=== PATIENT | male | born 1965 | race Caucasian/White ===

== ENCOUNTER 2017-06-27 12:10 | Emergency (ER) | payer SELFPAY ==
[~2017-06-27] VITALS: Ht 180.3 cm; Wt 106.7 kg
[2017-06-27 12:18] VITALS: TEMP 36.7; Ht 180.3 cm; Wt 106.7 kg
[2017-06-27 12:48] LABS: BASO % 0.3 %; BASO ABS # 0.02 K/uL (0-0.2); EOS % 4.3 %; HEMATOCRIT 44.7 % (42-52); HEMOGLOBIN 15.7 g/dL (14.0-18.0); IG# 0.01 K/uL (0.00-0.02); LYMPH % 19.9 %; MEAN CELL VOLUME 89.8 fL (80-100); MEAN CORPUSCULAR HEMOGLOBIN 31.5 pg (25-34); MEAN CORPUSCULAR HGB CONC 35.1 g/dl (32-36); MEAN PLATELET VOLUME 10.4 fL (7.4-10.4); MONO % 6.7 %; MONO ABS # 0.47 K/uL (0.11-0.59); NEUT % 68.7 %; NEUT ABS # 4.82 K/uL (1.4-6.5); PLATELET COUNT 172 K/uL (130-400); RED CELL DISTRIBUTION WIDTH CV 12.3 % (11.5-14.5); RED CELL DISTRIBUTION WIDTH SD 40.4 fL (36.4-46.3); WHITE BLOOD COUNT 7.02 K/uL (4.8-10.8)
[2017-06-27 12:56] LABS: PTT PATIENT 26.6 SECONDS (21.0-31.0)
[2017-06-27 13:04] LABS: CALCIUM 9.1 mg/dl (8.5-10.1); CREATININE 1.12 mg/dl (0.60-1.40); POTASSIUM 3.8 mmol/L (3.5-5.1)
[2017-06-27] MEDS ORDERED: ASPI81TA28 PO (13:12)
[2017-06-27] MEDS ORDERED: SIMVASTATIN PO (13:12)
[2017-06-27] MEDS ORDERED: CLR10 PO (13:12)
[2017-06-27] MEDS ORDERED: DOCU100C31 PO ×2 (13:12)
[2017-06-27] MEDS ORDERED: SERT25TA PO (13:12)
[2017-06-27] MEDS ORDERED: LAMO100T16 PO (13:12)
[2017-06-27] MEDS ORDERED: METOPROLOL PO (13:12)
[2017-06-27] MEDS ORDERED: SERT-234 PO (13:12)
[2017-06-27] MEDS ORDERED: FIBER PO ×2 (13:12)
--- NOTE | 2017-06-27 14:48 | DIAGNOSTIC IMAGING REPORT ---
L VENOUS DOPP LOWER EXT UNILAT CLINICAL HISTORY: 52 years-old Male presenting with left leg swelling eval for dvt. TECHNIQUE: Real-time grayscale and color and spectral Doppler ultrasound imaging of the veins of the left lower extremity was performed. Compression and augmentation were also utilized. COMPARISON: None. FINDINGS: Left: Common femoral vein: Patent. Greater saphenous vein: Patent. Deep femoral vein: Patent. Femoral vein: Patent. Popliteal vein: Patent. Calf veins: Patent. Other: Irregular shaped hypoechoic to anechoic elongated collection in the popliteal fossa extending into the left calf. IMPRESSION: 1. No evidence of deep venous thrombosis. 2. Findings suggest popliteal cyst though extension into the left calf would be atypical. This may represent rupture of the popliteal cyst or associated inflammatory change. Electronically signed by: Wesly Perales M.D. 06/27/2017 2:47 PM Dictated Date/Time: 06/27/2017 2:45 PM
[2017-06-27 15:24] VITALS: BP 133/78; PULSE 59; O2SAT 96
--- NOTE | 2017-06-27 17:10 | EMERGENCY ROOM VISIT NOTE ---
History Report prepared by Betty: Fe Lima Under the Supervision of: Dr. Shoaib Juarez M.D. 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 He has had muscle atrophy to the left side because of the stroke and so normally his right leg is bigger than his left. His has noticed that the left leg, however, has been increasing in size. He describes his pain as a "muscle strain" and denies any fevers, abdominal pain, or sweating. He denies any chest pain or shortness of breath. He denies any injury to the leg. 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 A total of 10 systems reviewed and were otherwise negative. Past Medical & Surgical Medical Problems: (1) CVA, old, dysarthria (2) CVA, old, hemiparesis Family History No pertinent family history Social History Smoking Status: Never Smoker Smokeless Tobacco Use: Unknown Marital Status: Occupation Status: employed Current/Historical Medications Scheduled Aspirin (Aspirin Ec), 81 MG PO DAILY Docusate Sodium (Docusate Sodium), 200 MG PO QAM Docusate Sodium (Docusate Sodium), 100 MG PO QPM Fiber Laxative (Fiber Laxative), 2 CAP PO QAM Fiber Laxative (Fiber Laxative), 1 CAP PO QPM Lamotrigine (Lamictal), 100 MG PO BID Loratadine (Claritin), 10 MG PO DAILY Sertraline (Zoloft), 25 MG PO DAILY Sertraline (Zoloft), 100 MG PO DAILY [Metoprolol], Unknown Dose PO UD [Simvastatin], Unknown Dose PO DAILY Allergies Coded Allergies: Codeine (Unverified Allergy, Severe, VOMITING, 06/27/17) Physical Exam Vital Signs Date Time Temp Pulse Resp B/P (MAP) Pulse Ox O2 Delivery O2 Flow Rate FiO2 06/27/17 15:24 59 16 133/78 96 06/27/17 13:49 72 16 164/72 96 Room Air 06/27/17 12:18 36.7 63 18 151/75 96 Room Air Physical Exam Constitutional: Vital signs reviewed. Eyes: Pupils are equal round reactive to light. Conjunctiva are noninjected. ENT: Pharynx is clear without erythema or exudate. Mucous membranes are moist. Neck supple without meningeal signs. Respiratory: Clear to auscultation bilaterally. Breath sounds are equal bilaterally. Cardiovascular: Regular rate and rhythm. No rubs or gallops. GI: Soft, nondistended and nontender. Bowel sounds are present. Musculoskeletal: Swelling without tenderness to the left calf. Generalized muscle atrophy to the left side. Integumentary: No cyanosis. Neurological: The patient is awake and alert. Weakness and numbness left side with speech difficulty. Psychiatric: Normal affect. Medical Decision & Procedures ER Provider Diagnostic Interpretation: Radiology results as stated below per my review and the radiologist's interpretation: L VENOUS DOPP LOWER EXT UNILAT CLINICAL HISTORY: 52 years-old Male presenting with left leg swelling eval for dvt. TECHNIQUE: Real-time grayscale and color and spectral Doppler ultrasound imaging of the veins of the left lower extremity was performed. Compression and augmentation were also utilized. COMPARISON: None. FINDINGS: Left: Common femoral vein: Patent. Greater saphenous vein: Patent. Deep femoral vein: Patent. Femoral vein: Patent. Popliteal vein: Patent. Calf veins: Patent. Other: Irregular shaped hypoechoic to anechoic elongated collection in the popliteal fossa extending into the left calf. IMPRESSION: 1. No evidence of deep venous thrombosis. 2. Findings suggest popliteal cyst though extension into the left calf would be atypical. This may represent rupture of the popliteal cyst or associated inflammatory change. Electronically signed by: Wesly Perales M.D. 06/27/2017 2:47 PM Laboratory Results 06/27/17 12:35 Red Blood Count 4.98, Mean Corpuscular Volume 89.8, Mean Corpuscular Hemoglobin 31.5, Mean Corpuscular Hemoglobin Concent 35.1, Mean Platelet Volume 10.4, Neutrophils (%) (Auto) 68.7, Lymphocytes (%) (Auto) 19.9, Monocytes (%) (Auto) 6.7, Eosinophils (%) (Auto) 4.3, Basophils (%) (Auto) 0.3, Neutrophils # (Auto) 4.82, Lymphocytes # (Auto) 1.40, Monocytes # (Auto) 0.47, Eosinophils # (Auto) 0.30, Basophils # (Auto) 0.02 06/27/17 12:35 Test 06/27/17 12:35 White Blood Count 7.02 K/uL (4.8-10.8) Red Blood Count 4.98 M/uL (4.7-6.1) Hemoglobin 15.7 g/dL (14.0-18.0) Hematocrit 44.7 % (42-52) Mean Corpuscular Volume 89.8 fL (80-100) Mean Corpuscular Hemoglobin 31.5 pg (25-34) Mean Corpuscular Hemoglobin Concent 35.1 g/dl (32-36) Platelet Count 172 K/uL (130-400) Mean Platelet Volume 10.4 fL (7.4-10.4) Neutrophils (%) (Auto) 68.7 % Lymphocytes (%) (Auto) 19.9 % Monocytes (%) (Auto) 6.7 % Eosinophils (%) (Auto) 4.3 % Basophils (%) (Auto) 0.3 % Neutrophils # (Auto) 4.82 K/uL (1.4-6.5) Lymphocytes # (Auto) 1.40 K/uL (1.2-3.4) Monocytes # (Auto) 0.47 K/uL (0.11-0.59) Eosinophils # (Auto) 0.30 K/uL (0-0.5) Basophils # (Auto) 0.02 K/uL (0-0.2) RDW Standard Deviation 40.4 fL (36.4-46.3) RDW Coefficient of Variation 12.3 % (11.5-14.5) Immature Granulocyte % (Auto) 0.1 % Immature Granulocyte # (Auto) 0.01 K/uL (0.00-0.02) Prothrombin Time 10.7 SECONDS (9.0-12.0) Prothromb Time International Ratio 1.0 (0.9-1.1) Activated Partial Thromboplast Time 26.6 SECONDS (21.0-31.0) Partial Thromboplastin Ratio 1.0 Anion Gap 3.0 mmol/L (3-11) Est Creatinine Clear Calc Drug Dose 95.9 ml/min Estimated GFR () 87.1 Estimated GFR (Non- 75.1 BUN/Creatinine Ratio 18.0 (10-20) Calcium Level 9.1 mg/dl (8.5-10.1) Laboratory results as reviewed by me. ED Course 1225: The patient was evaluated in room C11. A complete history and physical exam was performed. 1513: Upon reevaluation, the patient appeared to have improvement of his symptoms. I discussed tonight's findings with him. He verbalized agreement of the treatment plan. He was discharged home. Medical Decision This is a 52-year-old male presents with left leg swelling. Differential diagnosis includes DVT, superficial thrombophlebitis, infection, popliteal cyst. I did perform a limited focused review of portions of the patient's old chart on the electronic medical record. The patient has had no prior visits to this hospital. I did evaluate the patient as noted above. IV access was established. I did order and review the patient's blood work as noted in the electronic medical record. I did order a Doppler ultrasound of the left leg. I did review the images myself as well as the radiology report as described above. There is no evidence of DVT. The patient does have what appears to be a ruptured popliteal cyst. I did discuss the test results with the patient and his . He was advised to follow-up with his doctor. He was discharged in good condition. Medication Reconcilliation Current Medication List: was personally reviewed by me Blood Pressure Screening Patient's blood pressure: Elevated blood pressure Blood pressure disposition: Referred to PCP Impression Primary Impression: Ruptured cyst of left popliteal space Scribe Attestation The scribe's documentation has been prepared under my direct and personally reviewed by me in its entirety. I confirm that the note above accurately reflects all work, treatment, procedures, and medical decision making performed by me. Departure Information Dispostion Home / Self-Care Referrals No Doctor, Assigned (PCP) Forms HOME CARE DOCUMENTATION FORM, IMPORTANT VISIT INFORMATION, WORK / SCHOOL INSTRUCTIONS Patient Instructions My [facility] Additional Instructions You have been examined and treated today on an emergency basis only. This is not a substitute for, or an effort to provide, complete comprehensive medical care. It is impossible to recognize and treat all injuries or illnesses in a single emergency department visit. It is therefore important that you follow up closely with your physician. Call as soon as possible for an appointment. Return for worsening symptoms or if you develop fever, vomiting, chest pain, shortness of breath, redness or increased warmth to the leg or any other concerning symptoms.
== END 2017-06-27 15:25 | disposition home or self-care (01) ==
LOC: C.EDB 12:14
DX: M66.0 Rupture of popliteal cyst (principal); I69.359 Hemiplegia and hemiparesis following cerebral infarction affecting unspecified side; M62.59 Muscle wasting and atrophy, not elsewhere classified, multiple sites; I69.322 Dysarthria following cerebral infarction; Z79.82 Long term (current) use of aspirin; Z79.899 Other long term (current) drug therapy; Z88.5 Allergy status to narcotic agent